=== PATIENT | male | born 1970 | race Caucasian/White ===

== ENCOUNTER 2017-01-07 09:16 | Emergency (ER) | payer OTHER ==
[~2017-01-07] VITALS: Ht 175.3 cm; Wt 79.0 kg
[~2017-01-07 09:16] MED LIST: CITALOPRAM HBR20 MG PO; DURAGESIC50 MCG TD; HYDROCODON-ACE1 EACH; LEVAQUIN500 MG PO; METHADONE1 MG/1 ML PO; MOTRIN800 MG PO; NAPROSYN500 MG PO; NOHOMEMEDS; PERCOCET 5/31 TABLET PO; PERCOGESIC PO; PHENERGAN25 MG PR; PROMETHAZINE HC25 M1 PO; XANAX2 MG PO
[2017-01-07] MEDS ORDERED: MOTRIN600 MG PO (10:32)
[2017-01-07] MEDS ORDERED: VIBRAMYCIN100 MG PO (10:32)
[2017-01-07 11:35] VITALS: BP 138/72
== END 2017-01-07 11:36 | disposition home or self-care (01) ==
LOC: EME 09:16
PROC: 0H98XZZ Drainage of Buttock Skin, External Approach (ICD-10-PCS; principal; 2017-01-07)
DX: L02.31 Cutaneous abscess of buttock (principal); L03.317 Cellulitis of buttock; Z79.891 Long term (current) use of opiate analgesic
CPT/HCPCS: 99281; 99284